=== PATIENT | female | born 1955 | race Caucasian/White ===

== ENCOUNTER 2019-05-02 11:57 | Day surgery (SDC) | payer MEDICARE, OTHER ==
[2019-05-02] VITALS (11 sets, daily range): BP systolic 113–145; BP diastolic 59–89; PULSE 59–88; TEMP 98.2
[~2019-05-02] VITALS: Ht 152.4 cm; Wt 111.5 kg
[~2019-05-02 11:57] MED LIST: ALEVE 220MG220 MG PO; ASPIRIN 81M81 MG/TA2 PO; CALCIUM + D 6001 TAB PO; COZAAR 50MG50 MG/TAB PO; FISH OIL 1000MG1 CAP PO; GLUCOPHAGE1000 MG PO; GLUCOSAMINE & C1 CA1 PO; GLUCOSAMINE500 M2 PO; LIPITOR20 MG PO; LOPRESSOR 225 MG/TAB PO; MULTIPLE VITAMI1 CAP PO; PLAVIX 75MG TAB75 MG PO; VITAMIN D 400400 IU PO; VITAMINC500CH PO; ZOCOR 40MG40 MG PO
[2019-05-02] MEDS ORDERED: CRESTOR20 MG PO (12:58)
[2019-05-02] MEDS ORDERED: PLAVIX 75MG TAB75 MG PO (13:01)
[2019-05-02] MEDS ORDERED: TOPROL XL100 MG PO (13:01)
[2019-05-02] MEDS ORDERED: CALCIUM CARBON650 M2 PO (13:04)
[2019-05-02 13:05] LABS: MEAN CELL VOLUME 87 fl (80.0-100.0); MEAN CORPUSCULAR HEMOGLOBIN 28 pg (27.0-31.0); MEAN CORPUSCULAR HGB CONC 32 g/dl (33.0-37.0); MEAN PLATELET VOLUME 10.2 fl (7.4-10.4); PLATELET COUNT 289 K/mm3 (130-400); RED BLOOD COUNT 3.91 M/mm3 (4.10-5.30); REDCELL DISTRIBUTION WIDTH-CV 13.8 % (11.5-14.5)
[2019-05-02 13:12] LABS: HEMATOCRIT 34.1 % (37.0-47.0); PROTHROMBIN TIME 11.7 SECONDS (9.7-12.8)
[2019-05-02] MEDS ORDERED: NITROSTAT0.4 MG/TAB SL (13:12)
[2019-05-02 13:14] LABS: CALCIUM 9.3 mg/dL (8.4-10.2); CREATININE, serum 0.85 (0.52-1.25); POTASSIUM 4.2 mmol/L (3.4-5.0)
[2019-05-02] MEDS ORDERED: TYLENOL 500MG500 MG PO (13:17)
--- NOTE | 2019-05-02 14:25 | NUR ---
Pt to procedure,report to Rg Bhatia.
--- NOTE | 2019-05-02 14:38 | NUR ---
ALL MEDICATIONS GIVEN VORB WITH MD. SEE MERGE FOR ALL MEDICATION ADMIN TIMES. SEE MERGE FOR ALL RASS ASSESSMENTS DURING AND POST PROCEDURE. RADIAL PULSE +1, BARBEAU'S TEST POSITIVE IN THE RIGHT WRIST.
--- NOTE | 2019-05-02 15:41 | NUR ---
Patient transported back to express unit room 14. Patient hooked up to monitoring equipment, VS stable. Bedside report given to MISAEL Toth. Patient reports slight headache at this time. TR band remains in place with 12 ml of air in the band. No hematoma present, no oozing at this time, visualized with MISAEL Toth. Discussed wrist restrictions with patient. All questions and concerns addressed at this time. Bed in lowest position, call light within reach.
--- NOTE | 2019-05-02 17:49 | NUR ---
Discharge instructions given to pt.pt verbalizes understanding.INT removed,catheter tip intact.Pt ambulated to bathroom.
--- NOTE | 2019-05-02 18:06 | NUR ---
Pt escorted out via wheelchair by this nurse.
== END 2019-05-02 18:06 | disposition home or self-care (01) ==
LOC: COL.CAR 11:57
PROVIDERS: Internal Medicine Interventional Cardiology
DX: R94.39 Abnormal result of other cardiovascular function study (principal); R06.02 Shortness of breath; I27.20 Pulmonary hypertension, unspecified; I35.0 Nonrheumatic aortic (valve) stenosis; I35.1 Nonrheumatic aortic (valve) insufficiency; E11.9 Type 2 diabetes mellitus without complications; E78.5 Hyperlipidemia, unspecified; I25.2 Old myocardial infarction; I25.10 Atherosclerotic heart disease of native coronary artery without angina pectoris; Z90.710 Acquired absence of both cervix and uterus; Z82.3 Family history of stroke; Z88.0 Allergy status to penicillin; Z79.82 Long term (current) use of aspirin; Z79.84 Long term (current) use of oral hypoglycemic drugs; Z79.02 Long term (current) use of antithrombotics/antiplatelets
CPT/HCPCS: J1644; J3010; Q9967

== ENCOUNTER 2021-05-29 08:06 | Day surgery (SDC) | payer MEDICARE, OTHER ==
[~2021-05-29] VITALS: Ht 152.5 cm; Wt 97.4 kg
[2021-05-29] VITALS (11 sets, daily range): BP systolic 90–157; BP diastolic 60–82; PULSE 59–64; TEMP 98
[~2021-05-29 08:06] MED LIST changes: +BRILINTA90 MG PO; +CALCIUM CARBON650 M2 PO; +CRESTOR20 MG PO; +NITROSTAT0.4 MG/TAB SL; +TOPROL XL100 MG PO; +TYLENOL 500MG500 MG PO
[2021-05-29 08:41] LABS: MEAN CELL VOLUME 89 fl (80.0-100.0); MEAN CORPUSCULAR HEMOGLOBIN 28 pg (27.0-31.0); MEAN CORPUSCULAR HGB CONC 32 g/dl (33.0-37.0); MEAN PLATELET VOLUME 10.4 fl (7.4-10.4); PLATELET COUNT 290 K/mm3 (130-400); RED BLOOD COUNT 3.55 M/mm3 (4.10-5.30); REDCELL DISTRIBUTION WIDTH-CV 15.2 % (11.5-14.5)
[2021-05-29 08:43] LABS: HEMATOCRIT 31.5 % (37.0-47.0)
[2021-05-29 08:45] LABS: PROTHROMBIN TIME 10.7 SECONDS (9.7-12.8)
[2021-05-29 08:48] LABS: PARTIAL THROMBOPLASTIN TIME 22.4 SECONDS (26.0-37.0)
[2021-05-29 08:54] LABS: CALCIUM 9.6 mg/dL (8.4-10.2); CREATININE, serum 1.32 (0.52-1.25); POTASSIUM 4.8 mmol/L (3.4-5.0)
[2021-05-29] MEDS ORDERED: COZAAR 50MG50 MG/TAB PO (10:40)
[2021-05-29] MEDS ORDERED: EFFIENT10 MG PO (10:42)
--- NOTE | 2021-05-29 12:09 | NUR ---
Pt to procedure at this time.
[2021-05-29] MEDS ORDERED: IMDUR 60MG60 MG/TAB PO (13:21)
--- NOTE | 2021-05-29 16:34 | NUR ---
Discharge instructions given to pt.Pt verbalizes understanding.INT removed,catheter tip intact.Pt escorted out via wheelchair.
== END 2021-05-29 16:48 ==
LOC: COL.CAR 08:06
PROVIDERS: Internal Medicine Interventional Cardiology
DX: I25.10 Atherosclerotic heart disease of native coronary artery without angina pectoris (principal); I25.2 Old myocardial infarction; I10 Essential (primary) hypertension; I35.0 Nonrheumatic aortic (valve) stenosis; I87.2 Venous insufficiency (chronic) (peripheral); R60.0 Localized edema; E11.9 Type 2 diabetes mellitus without complications; E78.5 Hyperlipidemia, unspecified; Z79.82 Long term (current) use of aspirin; Z79.84 Long term (current) use of oral hypoglycemic drugs; Z95.0 Presence of cardiac pacemaker; Z95.2 Presence of prosthetic heart valve; Z20.822 Contact with and (suspected) exposure to COVID-19; Z79.899 Other long term (current) drug therapy; Z90.710 Acquired absence of both cervix and uterus; Z90.89 Acquired absence of other organs; Z82.3 Family history of stroke; Z80.9 Family history of malignant neoplasm, unspecified
CPT/HCPCS: C1760; C1887; C1894; J1644; J2250; J3010; Q9967

== ENCOUNTER 2021-12-26 14:11 | Inpatient (IN) | payer MEDICARE, OTHER ==
[~2021-12-26] VITALS: Ht 154.9 cm; Wt 98.9 kg
[2021-12-26] VITALS (8 sets, daily range): BP systolic 96–136; BP diastolic 56–74; PULSE 69–84; TEMP 97.7–98.1
[~2021-12-26 14:11] MED LIST changes: +EFFIENT10 MG PO; +IMDUR 60MG60 MG/TAB PO
[2021-12-26] MEDS ORDERED: IMDUR 30MG30 MG/TAB PO (18:02)
[2021-12-26 18:03] LABS: HEMOGLOBIN 9.4 g/dl (12.5-16.0)
[2021-12-26] MEDS ORDERED: JARDIANCE10 PO (18:08)
--- NOTE | 2021-12-26 20:42 | NUR ---
Pt. arrived to the floor from PACU. Pt. is A&OX3, assessment complete. IV to rt. forearm patent, IV fluids infusing per orders. Pt. ambulated to the bathroom independently. Urine is bloody at this time. Pt. reports mild pain at a 3 on pain scale, will give Tylenol per orders. Pt. denies further needs, call light within reach.
[2021-12-27 00:16] VITALS: BP 91/53; PULSE 66; TEMP 97.7
[2021-12-27 00:27] VITALS: BP 95/55; PULSE 69
[2021-12-27 04:18] VITALS: BP 98/49; PULSE 62; TEMP 97.5
--- NOTE | 2021-12-27 05:30 | NUR ---
Attempted to get FENA. D/T urine being bloody, laundry laborer reported to this nurse that the machine was not able to handle the bloody sample. BOUBACAR Melgar notified of this. Discussed checking urine with each void and deturmineing if bloodyness has improved. So will get the FENA when urine less bloody. Encouraged pt. to increase po. Pt. verbalizes understanding.
[2021-12-27 05:43] LABS: BASO # 0.1 K/mm3 (0.0-0.2); BASO % 0.6 % (0.0-2.0); EOS # 0.2 K/mm3 (0.0-0.7); EOS % 2.5 % (0.0-4.0); GRAN # 6.7 K/mm3 (1.4-6.5); GRAN % 70.5 % (42.2-75.2); LYMPH # 1.7 K/mm3 (1.2-3.4); LYMPH % 17.3 % (20.0-51.0); MEAN CELL VOLUME 81 fl (80.0-100.0); MEAN CORPUSCULAR HGB CONC 31 g/dl (33.0-37.0); MEAN PLATELET VOLUME 9.8 fl (7.4-10.4); MONO # 0.8 K/mm3 (0.1-0.6); MONO % 8.7 % (1.7-9.3); PLATELET COUNT 344 K/mm3 (130-400); RED BLOOD COUNT 3.56 M/mm3 (4.10-5.30); REDCELL DISTRIBUTION WIDTH-CV 15.9 % (11.5-14.5)
[2021-12-27 06:02] LABS: HEMATOCRIT 28.9 % (37.0-47.0); HEMOGLOBIN 8.9 g/dl (12.5-16.0); MEAN CORPUSCULAR HEMOGLOBIN 25 pg (27-31)
[2021-12-27 06:03] LABS: CALCIUM 8.9 mg/dL (8.4-10.2); CREATININE, serum 3.04 mg/dL (0.57-1.11); POTASSIUM 4.7 mmol/L (3.5-4.5)
[2021-12-27 08:00] VITALS: BP 91/48; PULSE 69; TEMP 97.5
--- NOTE | 2021-12-27 09:44 | NUR ---
Pt assessment complete. Pt is sitting in recliner upon entry, she is A/O x4. Her breathing is even and unlabored on RA. Pt denies SOB. Reports slight cramping after urination, but denies pain. Urine is pollard red in nature. No N/V/D, denies having a BM since . No further needs at this time. Call light within reach.
[2021-12-27 10:10] LABS: CREATININE, serum 3.01 mg/dL (0.57-1.11); FRACTIONAL EXCRETION OF NA+ 1.05 %
--- NOTE | 2021-12-27 11:15 | NUR ---
Initial visit; Patient thanked Web Operations Lead for looking in on her and offering prayer and God's blessings. Patient and Web Operations Lead had a nice visit.
[2021-12-27] MEDS ORDERED: PYRIDIUM 100MG100 MG PO (11:23)
[2021-12-27] MEDS ORDERED: CIPRO 500MG TA500 MG PO (11:41)
--- NOTE | 2021-12-27 13:44 | NUR ---
Discharge paperwork and instructions reviewed with patient. All questions answered at this time. IV to RFA, dc'd catheter tip intact. Pt wheeled out of facility by staff member at this time.
[2021-12-27 14:47] VITALS: BP 92/77; PULSE 69; TEMP 98.3
== END 2021-12-27 13:45 | disposition home or self-care (01) | DRG 660 ==
LOC: SURG 14:11
PROVIDERS: Physician Assistant; Urology; ADMIT Internal Medicine
PROC: 0T768DZ Dilation of Right Ureter with Intraluminal Device, Via Natural or Artificial Opening Endoscopic (ICD-10-PCS; principal; 2021-12-26 18:30)
PROC: BT1D1ZZ Fluoroscopy of Right Kidney, Ureter and Bladder using Low Osmolar Contrast (ICD-10-PCS; 2021-12-26 18:30)
DX: N13.2 Hydronephrosis with renal and ureteral calculous obstruction (principal); I13.0 Hypertensive heart and chronic kidney disease with heart failure and stage 1 through stage 4 chronic kidney disease, or unspecified chronic kidney disease; I50.22 Chronic systolic (congestive) heart failure; K92.1 Melena; N17.9 Acute kidney failure, unspecified; N18.9 Chronic kidney disease, unspecified; I25.10 Atherosclerotic heart disease of native coronary artery without angina pectoris; E11.22 Type 2 diabetes mellitus with diabetic chronic kidney disease; E78.5 Hyperlipidemia, unspecified; I27.20 Pulmonary hypertension, unspecified; D64.9 Anemia, unspecified; I44.7 Left bundle-branch block, unspecified; I08.1 Rheumatic disorders of both mitral and tricuspid valves; I72.8 Aneurysm of other specified arteries; K80.20 Calculus of gallbladder without cholecystitis without obstruction; Z95.5 Presence of coronary angioplasty implant and graft; Z79.84 Long term (current) use of oral hypoglycemic drugs; Z79.82 Long term (current) use of aspirin; Z23 Encounter for immunization
CPT/HCPCS: 99223-AI; 99239; C1769; C2617; G0378; J0690; J0696; J2405; J2704; J7030; Q9967